=== PATIENT | female | born 1960 | race African-American/Black ===

== ENCOUNTER 2018-05-14 07:49 | Inpatient (IN) ==
[2018-05-14] MEDS ORDERED: SODIUM CHLORIDE 0.9% 500 ML IV STA ×2 (08:40→09:19)
[2018-05-14] MEDS ORDERED: ONDANSETRON 4 MG/2 ML VIAL IV STA (08:40)
[2018-05-14] MEDS ORDERED: HYDROmorphone 2 MG/1 ML VIAL IV STA (08:40)
[2018-05-14 09:13] LABS: Basophils % 0.4 % (0.0-0.8); Eosinophils # 0.1 10*3/uL (0.0-0.87); Eosinophils % 1.2 % (0.00-10.9); Hematocrit 31.5 VOL% (35.7-47.0); Hemoglobin 10.5 GM/DL (12.0-16.0); Immature Granulocytes % 0.4 %; Immature Granulocytes Absolute 0.03 #; Lymphocytes # 1.6 10*3/uL (1.4-4.0); Lymphocytes % 19.4 % (21.3-54.2); Mean Corpuscular HGB Conc 33.3 GM/DL (32-36); Mean Corpuscular Hemoglobin 31 PG (27-34); Mean Corpuscular Volume 91.8 FL (87-102); Mean Platelet Volume 9.9 FL (9.6-12.0); Monocytes # 0.5 10*3/uL (0.11-0.8); Monocytes % 6.6 % (1.7-12.7); Neutrophils # 5.9 10*3/uL (1.4-7.4); Platelet Count 202 T/CUMM (130-400); Red Blood Count 3.43 MC/CUMM (3.8-5.5); Red Cell Distribution Width 13.9 % (9.3-17.3); White Blood Count 8.2 T/CUMM (4-12)
[2018-05-14 09:32] LABS: Apearance,Urine Slightly Hazy (Clear); Bacteria,Urine Occasional /HPF (Few); Bilirubin,Urine Negative (Negative); Blood, Urine Small mg/dL (Negative); Glucose,Urine (UA) Negative (Negative); Ketones,Urine Negative (Negative); Nitrite,Urine Negative (Negative); Protein,Urine Negative; RBC,Urine <1 /HPF (0-4); Squamous Epithelial Cell,Urine Occasional /HPF (0-10); Urine Color Yellow (Yellow); Urine Specific Gravity 1.009 (1.001-1.035); Urine Urobilinogen < 2.0 EU/DL (0.2-1.0); WBC,Urine 1 /HPF (0-6)
[2018-05-14 09:37] LABS: Albumin 3.8 G/DL (3.4-5.0); Bilirubin,Total 0.5 MG/DL (0.2-1.0); Calcium 9.5 MG/DL (8.5-10.1); Osmolality,Calculated 290.5 MOS/KG (273-304); Total Protein 9.2 G/DL (6.4-8.3)
[2018-05-14] MEDS ORDERED: fentaNYL 100 MCG/2 ML VIAL IV STA (13:09)
[2018-05-14] MEDS ORDERED: ACETAMINOPHEN 325 MG TABLET PO PRN (13:17)
[2018-05-14] MEDS ORDERED: BISACODYL 10 MG SUPP RECTAL PRN (13:17)
[2018-05-14] MEDS: SODIUM CHLORIDE 0.9% 1,000 ML IV SCH ×2 (14:52→21:02)
[2018-05-14] MEDS: ONDANSETRON 4 MG/2 ML VIAL IV PRN (16:05)
[2018-05-14] MEDS: MAGNESIUM HYDROXIDE SUSP 30 ML UDCUP PO PRN (20:58)
[2018-05-14] MEDS: DOCUSATE SODIUM 100 MG CAPSULE PO SCH (20:58)
[2018-05-14] MEDS ORDERED: DEXTROSE 50% 25 GM/50 ML VIAL IV PRN (22:25)
[2018-05-14] MEDS ORDERED: GLUCAGON 1 MG VIAL IM PRN (22:25)
[2018-05-15] MEDS: METOCLOPRAMIDE 10 MG/2 ML VIAL IV PRN ×2 (00:07→05:51)
[2018-05-15] MEDS: ceFAZolin 2,000 MG in PREMIX 1 EACH IV SCH ×5 (00:10→22:22)
[2018-05-15] MEDS: INSULIN REGULAR 100 UNIT/ML SUBCUT SCH ×4 (04:14→20:05)
[2018-05-15] MEDS: SODIUM CHLORIDE 0.9% 1,000 ML IV SCH ×2 (05:53→16:34)
[2018-05-15 06:54] LABS: Basophils % 0.2 % (0.0-0.8); Eosinophils % 0.5 % (0.00-10.9); Hematocrit 26.9 VOL% (35.7-47.0); Immature Granulocytes % 0.7 %; Immature Granulocytes Absolute 0.04 #; Lymphocytes # 1.5 10*3/uL (1.4-4.0); Lymphocytes % 25.8 % (21.3-54.2); Mean Corpuscular HGB Conc 33.5 GM/DL (32-36); Mean Corpuscular Hemoglobin 30 PG (27-34); Mean Corpuscular Volume 90.3 FL (87-102); Mean Platelet Volume 9.8 FL (9.6-12.0); Monocytes # 0.6 10*3/uL (0.11-0.8); Monocytes % 10.6 % (1.7-12.7); Neutrophils # 3.6 10*3/uL (1.4-7.4); Neutrophils % 62.2 % (38.7-73.9); Platelet Count 195 T/CUMM (130-400); Red Blood Count 2.98 MC/CUMM (3.8-5.5); Red Cell Distribution Width 14.2 % (9.3-17.3); White Blood Count 5.7 T/CUMM (4-12)
[2018-05-15 07:25] LABS: Albumin 3.1 G/DL (3.4-5.0); Bilirubin,Total 0.4 MG/DL (0.2-1.0); Calcium 8.4 MG/DL (8.5-10.1); Osmolality,Calculated 286.3 MOS/KG (273-304); Potassium 3.8 MMOL/L (3.5-5.1); Total Protein 8.2 G/DL (6.4-8.3)
[2018-05-15] MEDS: DOCUSATE SODIUM 100 MG CAPSULE PO SCH ×2 (10:13→22:40)
[2018-05-15 15:36] LABS: Hepatitis A Ab IgM Result Negative (Negative); Hepatitis B Core IgM Quant 0.15 Index; Hepatitis B Core IgM Result Negative (Negative); Hepatitis B Surface Ag Quant < 0.10 Index; Hepatitis B Surface Ag Result Negative (Negative); Hepatitis C Virus Ab Quant 0.14 Index; Hepatitis C Virus Ab Result Negative (Negative)
[2018-05-15] MEDS: METOPROLOL TARTRATE 25 MG TABLET PO SCH (20:35)
[2018-05-16] MEDS: SODIUM CHLORIDE 0.9% 1,000 ML IV SCH ×3 (02:06→14:19)
[2018-05-16] MEDS: INSULIN REGULAR 100 UNIT/ML SUBCUT SCH ×4 (02:07→20:03)
[2018-05-16] MEDS: ceFAZolin 2,000 MG in PREMIX 1 EACH IV SCH ×4 (03:52→21:50)
[2018-05-16 06:21] LABS: Alanine Aminotransferase < 6 U/L (13-56); Albumin 2.8 G/DL (3.4-5.0); Alkaline Phosphatase 99 U/L (45-117); Aspartate Amino Transferase 13 U/L (0-37); Blood Urea Nitrogen 19 MG/DL (7-18); Calcium 8.2 MG/DL (8.5-10.1); Glucose 98 MG/DL (74-106); Osmolality,Calculated 284.1 MOS/KG (273-304); Sodium 142 MMOL/L (136-145); Total Protein 7.6 G/DL (6.4-8.3)
[2018-05-16] MEDS ORDERED: GLUCAGON 1 MG VIAL IM PRN (08:38)
[2018-05-16] MEDS ORDERED: DEXTROSE 50% 25 GM/50 ML VIAL IV PRN (08:38)
[2018-05-16] MEDS: DOCUSATE SODIUM 100 MG CAPSULE PO SCH ×2 (08:51→21:48)
[2018-05-16] MEDS: METOPROLOL TARTRATE 25 MG TABLET PO SCH ×2 (08:51→21:48)
[2018-05-16] MEDS: amLODIPine 10 MG TABLET PO SCH (08:51)
[2018-05-16] MEDS: MAGNESIUM HYDROXIDE SUSP 30 ML UDCUP PO PRN (10:26)
[2018-05-16] MEDS ORDERED: ONDANSETRON 4 MG/2 ML VIAL IV PRN (11:22)
[2018-05-16] MEDS: ONDANSETRON 4 MG/2 ML VIAL IV PRN (11:25)
[2018-05-16] MEDS ORDERED: MAGNESIUM CITRATE 300 ML BOTTLE PO ONE (12:04)
[2018-05-16] MEDS: ASPIRIN EC 325 MG TABLET PO SCH (14:01)
[2018-05-16] MEDS ORDERED: SODIUM PHOSPHATE ENEMA 133 ML BOTTLE RECTAL PRN (17:20)
[2018-05-17] MEDS: SODIUM CHLORIDE 0.9% 1,000 ML IV SCH (02:28)
[2018-05-17] MEDS: INSULIN REGULAR 100 UNIT/ML SUBCUT SCH ×4 (02:28→19:59)
[2018-05-17 04:25] LABS: Basophils % 0.4 % (0.0-0.8); Eosinophils # 0.1 10*3/uL (0.0-0.87); Eosinophils % 1.3 % (0.00-10.9); Hemoglobin 7.5 GM/DL (12.0-16.0); Immature Granulocytes % 0.5 %; Immature Granulocytes Absolute 0.04 #; Lymphocytes # 1.5 10*3/uL (1.4-4.0); Lymphocytes % 17.9 % (21.3-54.2); Mean Corpuscular HGB Conc 32.6 GM/DL (32-36); Mean Corpuscular Hemoglobin 30 PG (27-34); Mean Corpuscular Volume 93.1 FL (87-102); Mean Platelet Volume 9.6 FL (9.6-12.0); Monocytes # 0.8 10*3/uL (0.11-0.8); Monocytes % 9.1 % (1.7-12.7); Neutrophils # 5.9 10*3/uL (1.4-7.4); Neutrophils % 70.8 % (38.7-73.9); Platelet Count 159 T/CUMM (130-400); Red Blood Count 2.47 MC/CUMM (3.8-5.5); Red Cell Distribution Width 13.7 % (9.3-17.3); White Blood Count 8.3 T/CUMM (4-12)
[2018-05-17] MEDS: ceFAZolin 2,000 MG in PREMIX 1 EACH IV SCH ×3 (04:32→16:33)
[2018-05-17 04:58] LABS: Calcium 8.4 MG/DL (8.5-10.1); Osmolality,Calculated 282.3 MOS/KG (273-304); Potassium 3.8 MMOL/L (3.5-5.1)
[2018-05-17] MEDS ORDERED: ceFAZolin 2,000 MG in PREMIX 1 EACH IV ONE (06:00)
[2018-05-17] MEDS: amLODIPine 10 MG TABLET PO SCH (06:36)
[2018-05-17] MEDS: METOPROLOL TARTRATE 25 MG TABLET PO SCH ×2 (06:37→22:04)
[2018-05-17] MEDS: MEPERIDINE 50 MG/1 ML VIAL IV PRN (07:39)
[2018-05-17] MEDS ORDERED: SODIUM CHLORIDE 0.9% 1,000 ML IV PRN ×2 (07:52→07:58)
[2018-05-17] MEDS ORDERED: PROPOFOL 200 MG/20 ML VIAL IV ONE (08:44)
[2018-05-17] MEDS ORDERED: ONDANSETRON 4 MG/2 ML VIAL ONE (08:44)
[2018-05-17] MEDS ORDERED: SUFentanil 50 MCG/ML AMP ONE (08:44)
[2018-05-17] MEDS ORDERED: ACETAMINOPHEN 1,000 MG/100 ML VIAL IV ONE (08:45)
[2018-05-17] MEDS ORDERED: MIDAZOLAM 2 MG/2 ML VIAL ONE (08:45)
[2018-05-17] MEDS ORDERED: ROCURONIUM 100 MG/10 ML VIAL IV ONE (08:45)
[2018-05-17 09:30] LABS: INR 1.1; PT Patient Result 11.6 SECS; Partial Thromboplastin Time 35.4 SECS (0-40)
[2018-05-17] MEDS ORDERED: ACETAMINOPHEN 500 MG TABLET PO PRN (09:42)
[2018-05-17] MEDS ORDERED: GLUCAGON 1 MG VIAL IM PRN (10:08)
[2018-05-17] MEDS ORDERED: DEXTROSE 50% 25 GM/50 ML VIAL IV PRN (10:08)
[2018-05-17] MEDS: ACETAMINOPHEN 500 MG TABLET PO SCH ×3 (10:10→23:20)
[2018-05-17 18:02] LABS: Basophils % 0.2 % (0.0-0.8); Eosinophils # 0.1 10*3/uL (0.0-0.87); Eosinophils % 1.4 % (0.00-10.9); Hematocrit 28.6 VOL% (35.7-47.0); Hemoglobin 9.9 GM/DL (12.0-16.0); Immature Granulocytes % 0.3 %; Immature Granulocytes Absolute 0.03 #; Lymphocytes # 1.3 10*3/uL (1.4-4.0); Lymphocytes % 13.6 % (21.3-54.2); Mean Corpuscular HGB Conc 34.6 GM/DL (32-36); Mean Corpuscular Hemoglobin 30 PG (27-34); Mean Corpuscular Volume 87.5 FL (87-102); Mean Platelet Volume 9.3 FL (9.6-12.0); Monocytes # 0.7 10*3/uL (0.11-0.8); Monocytes % 7.8 % (1.7-12.7); Neutrophils # 7.2 10*3/uL (1.4-7.4); Neutrophils % 76.7 % (38.7-73.9); Platelet Count 151 T/CUMM (130-400); Red Blood Count 3.27 MC/CUMM (3.8-5.5); Red Cell Distribution Width 14.3 % (9.3-17.3); White Blood Count 9.4 T/CUMM (4-12)
[2018-05-17] MEDS: DOCUSATE SODIUM 100 MG CAPSULE PO SCH (22:04)
[2018-05-18] MEDS: ceFAZolin 2,000 MG in PREMIX 1 EACH IV SCH ×3 (00:30→15:18)
[2018-05-18] MEDS: INSULIN REGULAR 100 UNIT/ML SUBCUT SCH (01:48)
[2018-05-18] MEDS: ACETAMINOPHEN 500 MG TABLET PO SCH (04:29)
[2018-05-18] MEDS: amLODIPine 10 MG TABLET PO SCH (06:30)
[2018-05-18] MEDS: METOPROLOL TARTRATE 25 MG TABLET PO SCH ×2 (06:31→21:39)
[2018-05-18 07:20] LABS: Basophils % 0.3 % (0.0-0.8); Eosinophils # 0.1 10*3/uL (0.0-0.87); Eosinophils % 1.4 % (0.00-10.9); Hematocrit 34.6 VOL% (35.7-47.0); Hemoglobin 11.4 GM/DL (12.0-16.0); Immature Granulocytes % 0.5 %; Immature Granulocytes Absolute 0.05 #; Lymphocytes # 1.4 10*3/uL (1.4-4.0); Lymphocytes % 14.5 % (21.3-54.2); Mean Corpuscular HGB Conc 32.9 GM/DL (32-36); Mean Corpuscular Hemoglobin 30 PG (27-34); Mean Corpuscular Volume 90.1 FL (87-102); Mean Platelet Volume 9.7 FL (9.6-12.0); Monocytes # 0.6 10*3/uL (0.11-0.8); Monocytes % 6.1 % (1.7-12.7); Neutrophils # 7.3 10*3/uL (1.4-7.4); Neutrophils % 77.2 % (38.7-73.9); Platelet Count 191 T/CUMM (130-400); Red Blood Count 3.84 MC/CUMM (3.8-5.5); Red Cell Distribution Width 14.5 % (9.3-17.3); White Blood Count 9.4 T/CUMM (4-12)
[2018-05-18 07:42] LABS: Calcium 9.1 MG/DL (8.5-10.1); Osmolality,Calculated 272.8 MOS/KG (273-304); Potassium 3.7 MMOL/L (3.5-5.1)
[2018-05-18] MEDS ORDERED: BISACODYL 10 MG SUPP RECTAL PRN (10:35)
[2018-05-18] MEDS ORDERED: ACETAMINOPHEN 325 MG TABLET PO PRN (10:35)
[2018-05-18] MEDS ORDERED: BENZOCAINE/MENTHOL LOZENGE 18/BOX PO PRN (10:35)
[2018-05-18] MEDS ORDERED: IBUPROFEN 800 MG TABLET PO PRN (10:35)
[2018-05-18 10:42] LABS: Apearance,Urine CLEAR (Clear); Bilirubin,Urine Negative (Negative); Blood, Urine Small mg/dL (Negative); Glucose,Urine (UA) Negative (Negative); Ketones,Urine Negative (Negative); Nitrite,Urine Negative (Negative); Protein,Urine 30 MG/DL; RBC,Urine 1 /HPF (0-4); Urine Color Straw (Yellow); Urine Specific Gravity 1.013 (1.001-1.035); Urine Urobilinogen < 2.0 EU/DL (0.2-1.0); WBC,Urine 1 /HPF (0-6)
[2018-05-18] MEDS ORDERED: PROPOFOL 200 MG/20 ML VIAL IV ONE (10:52)
[2018-05-18] MEDS ORDERED: MIDAZOLAM 2 MG/2 ML VIAL ONE (10:53)
[2018-05-18] MEDS ORDERED: ROCURONIUM 100 MG/10 ML VIAL IV ONE (10:53)
[2018-05-18] MEDS ORDERED: fentaNYL 100 MCG/2 ML VIAL ONE (10:53)
[2018-05-18] MEDS ORDERED: GLYCOPYRROLATE 0.4 MG/2 ML VIAL ONE (10:54)
[2018-05-18] MEDS ORDERED: DEXAMETHASONE 10 MG/1 ML VIAL ONE (10:54)
[2018-05-18] MEDS ORDERED: NEOSTIGMINE 10 MG/10 ML VIAL ONE (10:54)
[2018-05-18] MEDS ORDERED: ACETAMINOPHEN 1,000 MG/100 ML VIAL IV ONE (10:54)
[2018-05-18] MEDS ORDERED: LACTATED RINGERS 1,000 ML IV SCH (11:00)
[2018-05-18] MEDS: MEPERIDINE 50 MG/1 ML VIAL IV PRN ×2 (12:10→19:59)
[2018-05-18] MEDS: ONDANSETRON 4 MG/2 ML VIAL IV PRN ×2 (12:10→20:01)
[2018-05-18] MEDS: SODIUM CHLORIDE 0.9% 1,000 ML IV SCH (15:25)
[2018-05-18] MEDS: ceFAZolin 1,000 MG in SYRINGE 1 EACH IV SCH ×2 (16:48→23:59)
[2018-05-18] MEDS: DOCUSATE SODIUM 100 MG CAPSULE PO SCH (21:49)
[2018-05-19 06:03] LABS: Basophils % 0.1 % (0.0-0.8); Hemoglobin 9.4 GM/DL (12.0-16.0); Immature Granulocytes % 0.6 %; Immature Granulocytes Absolute 0.05 #; Lymphocytes # 0.9 10*3/uL (1.4-4.0); Lymphocytes % 10.8 % (21.3-54.2); Mean Corpuscular HGB Conc 33.6 GM/DL (32-36); Mean Corpuscular Hemoglobin 30 PG (27-34); Mean Corpuscular Volume 88.9 FL (87-102); Mean Platelet Volume 9.7 FL (9.6-12.0); Monocytes # 0.6 10*3/uL (0.11-0.8); Monocytes % 6.7 % (1.7-12.7); Neutrophils % 81.8 % (38.7-73.9); Platelet Count 193 T/CUMM (130-400); Red Blood Count 3.15 MC/CUMM (3.8-5.5); Red Cell Distribution Width 13.9 % (9.3-17.3); White Blood Count 8.5 T/CUMM (4-12)
[2018-05-19] MEDS: SODIUM CHLORIDE 0.9% 1,000 ML IV SCH (06:05)
[2018-05-19] MEDS: INSULIN REGULAR 100 UNIT/ML SUBCUT SCH ×2 (06:10)
[2018-05-19] MEDS ORDERED: SIMETHICONE CHEW 80 MG TABLET PO PRN (09:04)
[2018-05-19] MEDS: amLODIPine 10 MG TABLET PO SCH ×3 (09:11→09:52)
[2018-05-19] MEDS: MAGNESIUM HYDROXIDE SUSP 30 ML UDCUP PO PRN ×2 (09:47→21:40)
[2018-05-19] MEDS: METOPROLOL TARTRATE 25 MG TABLET PO SCH ×5 (09:47→21:40)
[2018-05-19] MEDS: DOCUSATE SODIUM 100 MG CAPSULE PO SCH (09:53)
[2018-05-19] MEDS: DOCUSATE SODIUM 100 MG CAPSULE PO PRN ×2 (09:56→21:41)
[2018-05-20] MEDS: ASPIRIN EC 325 MG TABLET PO SCH ×2 (09:00→09:17)
[2018-05-20] MEDS: DOCUSATE SODIUM 100 MG CAPSULE PO SCH ×3 (09:00→21:14)
[2018-05-20] MEDS: amLODIPine 10 MG TABLET PO SCH (09:13)
[2018-05-20] MEDS: METOPROLOL TARTRATE 25 MG TABLET PO SCH ×2 (09:14→21:14)
[2018-05-20] MEDS: MAGNESIUM HYDROXIDE SUSP 30 ML UDCUP PO PRN (09:14)
[2018-05-21 07:17] VITALS: BP 139/70
[2018-05-21] MEDS: amLODIPine 10 MG TABLET PO SCH (08:18)
[2018-05-21] MEDS: METOPROLOL TARTRATE 25 MG TABLET PO SCH (08:18)
[2018-05-21] MEDS: DOCUSATE SODIUM 100 MG CAPSULE PO SCH (08:18)
[2018-05-21] MEDS: ASPIRIN EC 325 MG TABLET PO SCH (08:19)
== END 2018-05-21 12:30 | disposition home or self-care (01) | DRG 743 ==
LOC: N.EDINP 07:49 → N.ED 07:49 → N.OB 13:19
PROVIDERS: ADMIT Obstetrics & Gynecology; ATTEND Obstetrics & Gynecology